=== PATIENT | male | born 1990 | race African-American/Black ===

== ENCOUNTER 2017-12-05 19:05 | Emergency (ER) | payer SELFPAY ==
[2017-12-05] MEDS ORDERED: Azithromycin 250 MG TAB ONE (19:22)
[2017-12-05] MEDS ORDERED: Lidocaine 1% PF 5 ML VIAL ONE (19:22)
[2017-12-05] MEDS ORDERED: cefTRIAXone\\ROCEPHIN 250 MG VIAL ONE (19:22)
== END 2017-12-05 19:46 | disposition home or self-care (01) ==
LOC: ERS 19:05
DX: A64 Unspecified sexually transmitted disease (principal); F17.210 Nicotine dependence, cigarettes, uncomplicated
CPT/HCPCS: 96372; J0696; J2001

== ENCOUNTER 2018-08-15 15:32 | Emergency (ER) | payer SELFPAY ==
[2018-08-15 16:22] LABS: Bilirubin Small (Negative); Blood, Urine Trace (Negative); Clarity CLOUDY (Clear); Glucose, Urine (Dipstick) Negative (Negative); Leukocyte Moderate (Negative); Nitrite Negative (Negative); Protein, Urine (Dipstick) Negative (Neg-Trace); Specific Gravity, Urine 1.025 (1.002-1.036); pH, Urine 6.5 (5.0-9.0)
[2018-08-15 16:25] LABS: Bacteria/HPF None Seen HPF (None Seen); Hyaline Casts/LPF 4-6 HYALINE CAST LPF (0-3 Hyaline); Squamous Epithelial None Seen HPF (0-3)
[2018-08-15] MEDS ORDERED: cefTRIAXone\\ROCEPHIN 250 MG VIAL ONE (17:36)
[2018-08-15] MEDS ORDERED: Lidocaine 1% (PF) 30 ML VIAL ONE (17:36)
[2018-08-15] MEDS ORDERED: Azithromycin 250 MG TAB ONE (17:36)
[2018-08-19 09:18] LABS: Chlam.trachomatis by PCR,Urine Not Detected (NotDetected)
== END 2018-08-15 17:45 | disposition home or self-care (01) ==
LOC: ERS 15:32
DX: N34.2 Other urethritis (principal); F17.210 Nicotine dependence, cigarettes, uncomplicated
CPT/HCPCS: 81003; 81015; 87086; 87491; 87591; 96372; 99406; J0696; J2001

== ENCOUNTER 2022-04-25 16:30 | Emergency (ER) | payer BC, SELFPAY ==
[2022-04-25] MEDS ORDERED: cloNIDine 0.1 MG TAB ONE (17:48)
[2022-04-25] MEDS ORDERED: cefTRIAXone\\ROCEPHIN 500 MG VIAL ONE (17:48)
[2022-04-25] MEDS ORDERED: Lidocaine 1% MPF 2 ML VIAL ONE (17:49)
== END 2022-04-25 18:08 | disposition home or self-care (01) ==
LOC: ERS 16:30
DX: N34.1 Nonspecific urethritis (principal); F17.210 Nicotine dependence, cigarettes, uncomplicated
CPT/HCPCS: 96372; 99283; J0696

== ENCOUNTER 2025-01-04 14:37 | Outpatient (CLI) | payer OTHER | END 2025-01-04 14:38 | disposition home or self-care (01) | LOC: BICRAD 14:37 | PROVIDERS: ATTEND Family Medicine | DX: Z22.7 Latent tuberculosis (principal) | CPT/HCPCS: 71046 ==